=== PATIENT | male | born 1940 | race Caucasian/White ===

== ENCOUNTER 2017-05-05 04:34 | Observation (INO) | payer OTHER ==
[~2017-05-05] VITALS: Ht 170.2 cm; Wt 98.0 kg
[~2017-05-05 04:34] MED LIST: ATENOLOL50 MG PO; CRESTOR40 MG PO; FLONASE16 G1 BOTH NARES; LISINOPRIL40 MG PO; LORATADINE10 M2 PO; PROAIR HFA8.5 GM IH
[2017-05-05 05:41] LABS: HEMATOCRIT 44.2 % (38.0-50.0); MCH 29.4 PG (29.0-34.0); MCHC 33.7 G/DL (30.0-36.0); MCV 87.2 FL (86-99); PLATELET COUNT 223 K/uL (156-360); RBC DIS.WIDTH-CV 13.2 % (11.8-14.6); RED BLOOD COUNT 5.07 M/uL (4.00-5.50); WHITE BLOOD COUNT 7.1 K/uL (4.1-10.2)
[2017-05-05 05:44] LABS: CHLORIDE 107 mEq/L (99-109); SODIUM 138 mEq/L (136-147)
[2017-05-05 05:45] LABS: GLUCOSE 108 mg/dL (70-99)
[2017-05-05 05:47] LABS: ANION GAP 10 MEQ/L (2-14)
[2017-05-05 05:49] LABS: GFR ESTIMATE (CALCULATED) > 59 mL/min/
[2017-05-05 05:50] LABS: UREA NITROGEN (BUN) 19 mg/dL (9-23)
[2017-05-05 05:57] LABS: TROP-I INTERPRETATION NEGATIVE; TROPONIN-I < 0.01 ng/mL (0.0-0.30)
[2017-05-05] MEDS ORDERED: ASPIR-LOW81 MG PO (09:06)
[2017-05-05 11:00] VITALS: BP 165/79
[2017-05-05 13:12] LABS: TROPONIN-I < 0.01 ng/mL (0.0-0.30)
[2017-05-05 13:19] LABS: TROP-I INTERPRETATION NEGATIVE
[2017-05-05 18:13] LABS: TROP-I INTERPRETATION NEGATIVE; TROPONIN-I 0.01 ng/mL (0.0-0.30)
[2017-05-05 19:01] VITALS: BP 123/66
[2017-05-06] VITALS: BP 102/51
[2017-05-06 04:04] VITALS: BP 96/53
[2017-05-06 05:48] LABS: ANION GAP 10 MEQ/L (2-14); CHLORIDE 104 MEQ/L (99-109); GFR ESTIMATE (CALCULATED) > 59 mL/min/; GLUCOSE 107 mg/dL (70-99); POTASSIUM 4.1 MEQ/L (3.7-5.4); SAMPLE HEMOLYSIS CHECK 0; SAMPLE ICTERIC CHECK 0; SAMPLE LIPEMIA CHECK 0; SODIUM 141 MEQ/L (136-147); UREA NITROGEN (BUN) 18 mg/dL (9-23)
[2017-05-06 07:53] VITALS: BP 108/53
[2017-05-06 07:56] VITALS: BP 138/60
[2017-05-06 07:58] VITALS: BP 139/63
[2017-05-06 11:42] VITALS: BP 110/56
[2017-05-06] MEDS ORDERED: LOVASTATIN20 MG PO (12:21)
== END 2017-05-06 17:37 | disposition home or self-care (01) ==
LOC: EME 04:34 → EDOF 08:07 → 5WEST 08:07 → ENRESERV 08:10 → 5WEST 10:37
PROVIDERS: Emergency Medicine; Internal Medicine
DX: R55 Syncope and collapse (principal); I10 Essential (primary) hypertension; Z91.14 Patient's other noncompliance with medication regimen; E78.5 Hyperlipidemia, unspecified; K21.9 Gastro-esophageal reflux disease without esophagitis; M79.89 Other specified soft tissue disorders
CPT/HCPCS: 71020; 80048; 83880; 84484; 85027; 93005; 93306; 93970; 99202; 99281; 99285; G0378; G8978 GP CI; G8979 GP CH; G8987 GO CI; G8988 GO CH; J0360; J1650; J1940; J7040

== ENCOUNTER 2017-05-17 01:07 | Emergency (ER) | payer OTHER ==
[~2017-05-17] VITALS: Ht 175.3 cm; Wt 99.6 kg
[~2017-05-17 01:07] MED LIST changes: +ASPIR-LOW81 MG PO; +LOVASTATIN20 MG PO
[2017-05-17] MEDS ORDERED: CORTISONE57 GM TP (02:20)
[2017-05-17] MEDS ORDERED: BENADRYL25 MG PO (02:20)
[2017-05-17 02:38] VITALS: BP 146/76
== END 2017-05-17 02:38 | disposition home or self-care (01) ==
LOC: EME 01:07
DX: L30.9 Dermatitis, unspecified (principal); E78.5 Hyperlipidemia, unspecified; I10 Essential (primary) hypertension; Z79.82 Long term (current) use of aspirin; Z88.6 Allergy status to analgesic agent
CPT/HCPCS: 99281; 99283

== ENCOUNTER 2017-05-26 15:45 | Emergency (ER) | payer OTHER ==
[~2017-05-26] VITALS: Ht 170.2 cm; Wt 98.9 kg
[~2017-05-26 15:45] MED LIST changes: +BENADRYL25 MG PO; +CORTISONE57 GM TP
[2017-05-26 17:26] LABS: EOSINOPHIL (%) 2.4 % (0-5); EOSINOPHIL COUNT 0.2 K/uL (0-0.3); HEMATOCRIT 45.8 % (38.0-50.0); IMMATURE GRANULOCYTE (%) 1.2 % (0.0-0.7); IMMATURE GRANULOCYTE COUNT 0.1 K/uL; LYMPHOCYTE COUNT 1.2 K/uL (1.0-2.8); MCH 29.2 PG (29.0-34.0); MCHC 33.6 G/DL (30.0-36.0); MCV 86.7 FL (86-99); MEAN PLAT.VOLUME 10.6 uM^3 (9.0-12.4); MONOCYTE (%) 9.2 % (3-12); MONOCYTE COUNT 0.9 K/uL (0-0.8); NEUTROPHIL (%) 74.2 % (45-76); PLATELET COUNT 217 K/uL (156-360); RBC DIS.WIDTH-CV 13.2 % (11.8-14.6); RBC DIS.WIDTH-SD 41.1 % (39-53); RED BLOOD COUNT 5.28 M/uL (4.00-5.50); WHITE BLOOD COUNT 9.5 K/uL (4.1-10.2)
[2017-05-26 17:37] LABS: CHLORIDE 105 mEq/L (99-109); POTASSIUM 4.4 mEq/L (3.7-5.4); SODIUM 140 mEq/L (136-147)
[2017-05-26 17:38] LABS: GLUCOSE 103 mg/dL (70-99)
[2017-05-26 17:40] LABS: ANION GAP 11 MEQ/L (2-14)
[2017-05-26 17:42] LABS: GFR ESTIMATE (CALCULATED) > 59 mL/min/
[2017-05-26 17:43] LABS: UREA NITROGEN (BUN) 23 mg/dL (9-23)
[2017-05-26] MEDS ORDERED: LASIX40 MG PO (17:48)
[2017-05-26 18:44] VITALS: BP 115/76
== END 2017-05-26 18:45 | disposition home or self-care (01) ==
LOC: EME 15:45
PROVIDERS: Emergency Medicine
DX: R60.0 Localized edema (principal); I10 Essential (primary) hypertension; E78.5 Hyperlipidemia, unspecified; J45.909 Unspecified asthma, uncomplicated
CPT/HCPCS: 71010; 80048; 85025; 99281; 99284

== ENCOUNTER 2017-06-08 17:51 | Inpatient (IN) | payer OTHER ==
[~2017-06-08] VITALS: Ht 170.2 cm; Wt 96.2 kg
[~2017-06-08 17:51] MED LIST changes: +LASIX40 MG PO
[2017-06-08 18:54] LABS: MCH 29.3 PG (29.0-34.0); MCHC 33.7 G/DL (30.0-36.0); MCV 86.9 FL (86-99); PLATELET COUNT 246 K/uL (156-360); RBC DIS.WIDTH-CV 13.2 % (11.8-14.6); RBC DIS.WIDTH-SD 42.4 % (39-53); RED BLOOD COUNT 5.64 M/uL (4.00-5.50); WHITE BLOOD COUNT 15.6 K/uL (4.1-10.2)
[2017-06-08 19:07] LABS: CHLORIDE 99 mEq/L (99-109); POTASSIUM 3.7 mEq/L (3.7-5.4); SODIUM 137 mEq/L (136-147)
[2017-06-08 19:09] LABS: GLUCOSE 119 mg/dL (70-99)
[2017-06-08 19:10] LABS: ANION GAP 17 MEQ/L (2-14)
[2017-06-08 19:13] LABS: GFR ESTIMATE (CALCULATED) > 59 mL/min/
[2017-06-08 19:14] LABS: UREA NITROGEN (BUN) 18 mg/dL (9-23)
[2017-06-08 19:17] LABS: TROP-I INTERPRETATION NEGATIVE; TROPONIN-I 0.11 ng/mL (0.0-0.30)
[2017-06-08 21:16] LABS: INTER. NORMALIZED RATIO 1.2; PROTHROMBIN TIME 13.6 SEC (10.2-12.9)
[2017-06-08] MEDS ORDERED: VENTOLIN HFA18 GM IH (23:47)
[2017-06-08] MEDS ORDERED: LOPRESSOR25 MG PO (23:48)
[2017-06-08] MEDS ORDERED: POTASSIUM-9999 MG PO (23:48)
[2017-06-08] MEDS ORDERED: ALTOPREV20 MG PO (23:50)
[2017-06-09 04:35] VITALS: BP 133/71
[2017-06-09 05:25] LABS: HEMATOCRIT 40.2 % (38.0-50.0); MCH 29.7 PG (29.0-34.0); MCHC 34.1 G/DL (30.0-36.0); MCV 87.2 FL (86-99); MEAN PLAT.VOLUME 10.4 uM^3 (9.0-12.4); PLATELET COUNT 207 K/uL (156-360); RBC DIS.WIDTH-CV 13.4 % (11.8-14.6); RBC DIS.WIDTH-SD 42.5 % (39-53); RED BLOOD COUNT 4.61 M/uL (4.00-5.50); WHITE BLOOD COUNT 10.8 K/uL (4.1-10.2)
[2017-06-09 05:39] LABS: ALKALINE PHOSPHATASE 57 IU/L (3-129); ANION GAP 10 MEQ/L (2-14); CHLORIDE 106 MEQ/L (99-109); GFR ESTIMATE (CALCULATED) > 59 mL/min/; GLUCOSE 121 mg/dL (70-99); POTASSIUM 4.1 MEQ/L (3.7-5.4); SAMPLE HEMOLYSIS CHECK 0; SAMPLE ICTERIC CHECK 0; SAMPLE LIPEMIA CHECK 0; SODIUM 140 MEQ/L (136-147); TOTAL BILIRUBIN 1.3 MG/DL (0.0-1.0); UREA NITROGEN (BUN) 13 mg/dL (9-23)
[2017-06-09 07:49] VITALS: BP 137/81
[2017-06-09 11:29] VITALS: BP 124/75
[2017-06-09 15:14] VITALS: BP 119/63
[2017-06-09 20:09] VITALS: BP 133/63
[2017-06-09 23:27] VITALS: BP 119/65
[2017-06-10 02:06] LABS: HEMATOCRIT 36.9 % (38.0-50.0); MCH 29.3 PG (29.0-34.0); MCHC 34.1 G/DL (30.0-36.0); MCV 85.8 FL (86-99); MEAN PLAT.VOLUME 9.9 uM^3 (9.0-12.4); PLATELET COUNT 205 K/uL (156-360); RBC DIS.WIDTH-CV 13.3 % (11.8-14.6); RBC DIS.WIDTH-SD 41.7 % (39-53); WHITE BLOOD COUNT 10.8 K/uL (4.1-10.2)
[2017-06-10 03:06] LABS: CHLORIDE 104 mEq/L (99-109); SODIUM 138 mEq/L (136-147)
[2017-06-10 03:07] LABS: GLUCOSE 112 mg/dL (70-99)
[2017-06-10 03:09] LABS: ANION GAP 11 MEQ/L (2-14)
[2017-06-10 03:11] LABS: GFR ESTIMATE (CALCULATED) > 59 mL/min/
[2017-06-10 03:12] LABS: UREA NITROGEN (BUN) 14 mg/dL (9-23)
[2017-06-10 04:07] VITALS: BP 119/60
[2017-06-10 07:58] VITALS: BP 112/60
[2017-06-10 12:00] VITALS: BP 114/66
[2017-06-10 12:34] LABS: TROP-I INTERPRETATION NEGATIVE; TROPONIN-I 0.03 ng/mL (0.0-0.30)
[2017-06-10 16:06] VITALS: BP 125/60
[2017-06-10 18:47] LABS: TROP-I INTERPRETATION NEGATIVE; TROPONIN-I 0.02 ng/mL (0.0-0.30)
[2017-06-10 20:03] VITALS: BP 136/66
[2017-06-10 23:14] VITALS: BP 118/56
[2017-06-11 01:42] LABS: TROP-I INTERPRETATION NEGATIVE; TROPONIN-I 0.02 ng/mL (0.0-0.30)
[2017-06-11 03:38] VITALS: BP 138/60
[2017-06-11 06:07] LABS: HEMATOCRIT 36.9 % (38.0-50.0); MCH 28.6 PG (29.0-34.0); MCHC 33.1 G/DL (30.0-36.0); MCV 86.6 FL (86-99); MEAN PLAT.VOLUME 10.3 uM^3 (9.0-12.4); PLATELET COUNT 222 K/uL (156-360); RBC DIS.WIDTH-CV 13.3 % (11.8-14.6); RBC DIS.WIDTH-SD 41.7 % (39-53); RED BLOOD COUNT 4.26 M/uL (4.00-5.50); WHITE BLOOD COUNT 10.8 K/uL (4.1-10.2)
[2017-06-11 06:37] LABS: ANION GAP 10 MEQ/L (2-14); CHLORIDE 102 MEQ/L (99-109); GFR ESTIMATE (CALCULATED) > 59 mL/min/; GLUCOSE 115 mg/dL (70-99); POTASSIUM 4.2 MEQ/L (3.7-5.4); SAMPLE HEMOLYSIS CHECK 1; SAMPLE ICTERIC CHECK 0; SAMPLE LIPEMIA CHECK 0; SODIUM 134 MEQ/L (136-147); UREA NITROGEN (BUN) 13 mg/dL (9-23)
[2017-06-11 07:56] VITALS: BP 128/66
[2017-06-11 09:30] VITALS: BP 130/68
[2017-06-11 11:37] VITALS: BP 130/65
[2017-06-11] MEDS ORDERED: SPIRIVA RESPIMAT4 GM IH (12:30)
[2017-06-11] MEDS ORDERED: ELIQUIS5 MG PO (12:31)
== END 2017-06-11 15:55 | DRG 190 ==
LOC: EME 17:51 → 5SOUTH 22:29 → EDOF 22:29 → ENRESERV 22:32 → 5SOUTH 06-09 00:23 → ENRESERV 06-09 17:06 → 4EAST 06-09 20:14 → ENPENDDIS 06-11 15:30 → 4EAST 06-11 15:55
PROVIDERS: Hospitalist; Internal Medicine; Physician Assistant Medical
DX: J44.0 Chronic obstructive pulmonary disease with (acute) lower respiratory infection (principal); I26.99 Other pulmonary embolism without acute cor pulmonale; J20.9 Acute bronchitis, unspecified; I08.1 Rheumatic disorders of both mitral and tricuspid valves; E66.9 Obesity, unspecified; E78.5 Hyperlipidemia, unspecified; I11.0 Hypertensive heart disease with heart failure; I50.32 Chronic diastolic (congestive) heart failure; Z59.0 Homelessness; Z87.891 Personal history of nicotine dependence; K21.9 Gastro-esophageal reflux disease without esophagitis; M19.90 Unspecified osteoarthritis, unspecified site; I27.2 Other secondary pulmonary hypertension; Z68.33 Body mass index [BMI] 33.0-33.9, adult
CPT/HCPCS: 71020; 71275; 80048; 80053; 82272; 83880; 84484; 85027; 85379; 85610; 85730; 93005; 93306; 93970; 94640; 94640 76; 94799; 99202; 99281; 99285; J1940; J7030

== ENCOUNTER 2017-08-25 12:15 | Emergency (ER) | payer OTHER ==
[~2017-08-25] VITALS: Ht 170.2 cm; Wt 95.8 kg
[~2017-08-25 12:15] MED LIST changes: +ALTOPREV20 MG PO; +ELIQUIS5 MG PO; +LOPRESSOR25 MG PO; +POTASSIUM-9999 MG PO; +SPIRIVA RESPIMAT4 GM IH; +VENTOLIN HFA18 GM IH
[2017-08-25 13:57] VITALS: BP 144/82
== END 2017-08-25 13:57 | disposition home or self-care (01) ==
LOC: EME 12:15
DX: T17.928A Food in respiratory tract, part unspecified causing other injury, initial encounter (principal); K21.9 Gastro-esophageal reflux disease without esophagitis; J45.909 Unspecified asthma, uncomplicated; E78.5 Hyperlipidemia, unspecified; I10 Essential (primary) hypertension; Z59.0 Homelessness; Z86.711 Personal history of pulmonary embolism; Z79.01 Long term (current) use of anticoagulants
CPT/HCPCS: 99281; 99284

== ENCOUNTER 2018-01-16 02:57 | Emergency (ER) | payer OTHER ==
[~2018-01-16] VITALS: Ht 172.7 cm; Wt 91.9 kg
[2018-01-16] MEDS ORDERED: [UNRECOGNIZED DRUG - REMARK] (03:32)
[2018-01-16 03:46] VITALS: BP 131/71
== END 2018-01-16 03:46 | disposition home or self-care (01) ==
LOC: EME 02:57
DX: R60.0 Localized edema (principal); I87.8 Other specified disorders of veins; I10 Essential (primary) hypertension; E78.5 Hyperlipidemia, unspecified; K21.9 Gastro-esophageal reflux disease without esophagitis; J45.909 Unspecified asthma, uncomplicated; Z86.711 Personal history of pulmonary embolism; Z88.5 Allergy status to narcotic agent
CPT/HCPCS: 99281; 99284

== ENCOUNTER 2018-02-13 13:54 | Inpatient (IN) | payer OTHER ==
[~2018-02-13] VITALS: Ht 170.2 cm; Wt 93.1 kg
[~2018-02-13 13:54] MED LIST changes: +[UNRECOGNIZED DRUG - REMARK]
[2018-02-13 14:49] LABS: HEMATOCRIT 43.2 % (38.0-50.0); HEMOGLOBIN 14.7 G/DL (12.5-16.6); MCH 29.8 PG (29.0-34.0); MCV 87.6 FL (86-99); PLATELET COUNT 224 K/uL (156-360); RBC DIS.WIDTH-CV 13.2 % (11.8-14.6); RBC DIS.WIDTH-SD 42.5 % (39-53); RED BLOOD COUNT 4.93 M/uL (4.00-5.50)
[2018-02-13 14:59] LABS: INTER. NORMALIZED RATIO 1.2
[2018-02-13 15:00] LABS: ALBUMIN 4.2 g/dL (3.2-4.8); CHLORIDE 104 mEq/L (99-109); POTASSIUM 3.9 mEq/L (3.7-5.4); SODIUM 143 mEq/L (136-147)
[2018-02-13 15:02] LABS: GLUCOSE 123 mg/dL (70-99); PTT 32.7 SEC (25-37)
[2018-02-13 15:03] LABS: TOTAL PROTEIN 6.9 g/dL (6.4-8.3)
[2018-02-13 15:04] LABS: TOTAL BILIRUBIN 1.6 mg/dL (0.0-1.0)
[2018-02-13 15:06] LABS: ALKALINE PHOSPHATASE 76 IU/L (3-129); CREATININE 0.8 mg/dL (0.6-1.3); GFR ESTIMATE (CALCULATED) > 59 mL/min/ (58.99-99999)
[2018-02-13 15:07] LABS: UREA NITROGEN (BUN) 21 mg/dL (9-23)
[2018-02-13 15:08] LABS: AST (GOT) 17 IU/L (2-34)
[2018-02-13 15:09] LABS: ALT (GPT) 14 IU/L (3-49)
[2018-02-13 15:15] LABS: TROP-I INTERPRETATION NEGATIVE; TROPONIN-I 0.01 ng/mL (0.0-0.30)
[2018-02-13 23:56] VITALS: BP 109/54
[2018-02-14 05:51] LABS: HEMATOCRIT 36.9 % (38.0-50.0); HEMOGLOBIN 12.8 G/DL (12.5-16.6); MCH 29.9 PG (29.0-34.0); MCHC 34.7 G/DL (30.0-36.0); MCV 86.2 FL (86-99); PLATELET COUNT 194 K/uL (156-360); RBC DIS.WIDTH-CV 13.3 % (11.8-14.6); RBC DIS.WIDTH-SD 41.5 % (39-53); RED BLOOD COUNT 4.28 M/uL (4.00-5.50); WHITE BLOOD COUNT 8.5 K/uL (4.1-10.2)
[2018-02-14 06:19] LABS: ALBUMIN 3.5 G/DL (3.2-4.8); ALKALINE PHOSPHATASE 57 IU/L (3-129); ALT (GPT) 8 IU/L (3-49); AST (GOT) 12 IU/L (2-34); CHLORIDE 104 MEQ/L (99-109); CREATININE 0.7 MG/DL (0.6-1.3); GFR ESTIMATE (CALCULATED) > 59 mL/min/ (58.99-99999); GLUCOSE 132 mg/dL (70-99); SODIUM 138 MEQ/L (136-147); TOTAL BILIRUBIN 1.1 MG/DL (0.0-1.0); TOTAL PROTEIN 5.8 G/DL (6.4-8.3); UREA NITROGEN (BUN) 15 mg/dL (9-23)
[2018-02-14 07:58] VITALS: BP 129/64
[2018-02-14 12:06] VITALS: BP 132/65
[2018-02-14 16:18] VITALS: BP 120/63
[2018-02-14 19:46] VITALS: BP 129/63
[2018-02-14 23:32] VITALS: BP 115/62
[2018-02-15 05:41] VITALS: BP 118/59
[2018-02-15 06:13] LABS: HEMATOCRIT 37.8 % (38.0-50.0); HEMOGLOBIN 12.6 G/DL (12.5-16.6); MCH 28.8 PG (29.0-34.0); MCHC 33.3 G/DL (30.0-36.0); MCV 86.3 FL (86-99); PLATELET COUNT 212 K/uL (156-360); RED BLOOD COUNT 4.38 M/uL (4.00-5.50); WHITE BLOOD COUNT 10.4 K/uL (4.1-10.2)
[2018-02-15 06:31] LABS: CHLORIDE 102 MEQ/L (99-109); CREATININE 0.8 MG/DL (0.6-1.3); GFR ESTIMATE (CALCULATED) > 59 mL/min/ (58.99-99999); GLUCOSE 114 mg/dL (70-99); SODIUM 138 MEQ/L (136-147); UREA NITROGEN (BUN) 20 mg/dL (9-23)
[2018-02-15 06:56] VITALS: BP 114/68
[2018-02-15 10:56] VITALS: BP 113/58
[2018-02-15 15:00] VITALS: BP 101/52
[2018-02-15 20:52] VITALS: BP 114/53
[2018-02-16 00:37] VITALS: BP 117/62
[2018-02-16 04:53] VITALS: BP 113/56
[2018-02-16 07:36] VITALS: BP 148/67
[2018-02-16 11:05] VITALS: BP 122/68
[2018-02-16 15:25] VITALS: BP 137/64
[2018-02-16] MEDS ORDERED: SPIRIVA RESPIMAT4 GM IH (15:48)
[2018-02-16] MEDS ORDERED: ELIQUIS5 MG PO ×2 (15:58→15:59)
[2018-02-16] MEDS ORDERED: BENZONATATE100 MG PO (15:59)
[2018-02-16] MEDS ORDERED: FAMOTIDINE20 MG PO (16:00)
[2018-02-16 17:56] VITALS: BP 120/64
== END 2018-02-16 18:08 | DRG 299 ==
LOC: EME 13:54 → EDOF 18:45 → 5EAST 18:45 → ENRESERV 18:54 → 5EAST 19:46
PROVIDERS: Emergency Medicine Emergency Medical Services; Internal Medicine; Student in an Organized Health Care Education/Training Program
DX: I82.412 Acute embolism and thrombosis of left femoral vein (principal); I26.99 Other pulmonary embolism without acute cor pulmonale; I11.0 Hypertensive heart disease with heart failure; I50.32 Chronic diastolic (congestive) heart failure; J44.1 Chronic obstructive pulmonary disease with (acute) exacerbation; I27.20 Pulmonary hypertension, unspecified; E78.5 Hyperlipidemia, unspecified; R79.1 Abnormal coagulation profile; K21.9 Gastro-esophageal reflux disease without esophagitis; M79.642 Pain in left hand; Z86.711 Personal history of pulmonary embolism; Z86.718 Personal history of other venous thrombosis and embolism; Z59.0 Homelessness; Z87.891 Personal history of nicotine dependence; Z88.5 Allergy status to narcotic agent
CPT/HCPCS: 71045; 71275; 80048; 80053; 83735; 83880; 84153; 84484; 85027; 85379; 85610; 85730; 93005; 93306; 93971; 94640; 94640 76; 94760; 99202; 99281; 99285; J7040; J7512

== ENCOUNTER 2018-04-28 09:33 | Emergency (ER) | payer OTHER ==
[~2018-04-28] VITALS: Ht 170.2 cm; Wt 99.0 kg
[~2018-04-28 09:33] MED LIST changes: +BENZONATATE100 MG PO; +FAMOTIDINE20 MG PO
[2018-04-28 10:11] LABS: BASOPHIL (%) 0.4 % (0-1); EOSINOPHIL (%) 1.8 % (0-5); EOSINOPHIL COUNT 0.2 K/uL (0-0.3); HEMATOCRIT 42.3 % (38.0-50.0); HEMOGLOBIN 14.5 G/DL (12.5-16.6); IMMATURE GRANULOCYTE (%) 1.8 % (0.0-0.7); LYMPHOCYTE (%) 14.6 % (15-42); LYMPHOCYTE COUNT 1.3 K/uL (1.0-2.8); MCH 29.2 PG (29.0-34.0); MCHC 34.3 G/DL (30.0-36.0); MCV 85.1 FL (86-99); MONOCYTE (%) 8.8 % (3-12); MONOCYTE COUNT 0.8 K/uL (0-0.8); NEUTROPHIL (%) 72.6 % (45-76); NEUTROPHIL COUNT 6.5 K/uL (1.8-6.4); PLATELET COUNT 228 K/uL (156-360); RBC DIS.WIDTH-CV 13.3 % (11.8-14.6); RBC DIS.WIDTH-SD 41.2 % (39-53); RED BLOOD COUNT 4.97 M/uL (4.00-5.50); WHITE BLOOD COUNT 8.9 K/uL (4.1-10.2)
[2018-04-28 10:17] LABS: INTER. NORMALIZED RATIO 1.1
[2018-04-28 10:20] LABS: CHLORIDE 106 mEq/L (99-109); SODIUM 142 mEq/L (136-147)
[2018-04-28 10:22] LABS: GLUCOSE 113 mg/dL (70-99)
[2018-04-28 10:26] LABS: CREATININE 0.8 mg/dL (0.6-1.3); GFR ESTIMATE (CALCULATED) > 59 mL/min/ (58.99-99999)
[2018-04-28 10:27] LABS: UREA NITROGEN (BUN) 18 mg/dL (9-23)
[2018-04-28 14:49] VITALS: BP 170/77
== END 2018-04-28 14:50 ==
LOC: EME 09:33
PROVIDERS: Emergency Medicine
DX: T18.120A Food in esophagus causing compression of trachea, initial encounter (principal); X58.XXXA Exposure to other specified factors, initial encounter; M79.89 Other specified soft tissue disorders; R60.0 Localized edema; R11.10 Vomiting, unspecified; Z86.711 Personal history of pulmonary embolism; Z79.01 Long term (current) use of anticoagulants; J44.9 Chronic obstructive pulmonary disease, unspecified; I10 Essential (primary) hypertension; Z87.891 Personal history of nicotine dependence
CPT/HCPCS: 71045; 80048; 85025; 85610; 93970; 99281; 99285; J2405

== ENCOUNTER 2018-05-22 23:33 | Emergency (ER) | payer OTHER ==
[~2018-05-22] VITALS: Ht 175.3 cm; Wt 113.6 kg
[2018-05-23 00:27] LABS: BASOPHIL (%) 0.7 % (0-1); BASOPHIL COUNT 0.1 K/uL (0-0.1); EOSINOPHIL (%) 3.6 % (0-5); EOSINOPHIL COUNT 0.3 K/uL (0-0.3); HEMATOCRIT 40.8 % (38.0-50.0); IMMATURE GRANULOCYTE (%) 1.2 % (0.0-0.7); LYMPHOCYTE (%) 22.8 % (15-42); LYMPHOCYTE COUNT 1.8 K/uL (1.0-2.8); MCH 29.1 PG (29.0-34.0); MCHC 34.3 G/DL (30.0-36.0); MCV 84.8 FL (86-99); MONOCYTE COUNT 0.7 K/uL (0-0.8); NEUTROPHIL (%) 62.7 % (45-76); NEUTROPHIL COUNT 4.8 K/uL (1.8-6.4); PLATELET COUNT 253 K/uL (156-360); RBC DIS.WIDTH-CV 13.3 % (11.8-14.6); RBC DIS.WIDTH-SD 41.3 % (39-53); RED BLOOD COUNT 4.81 M/uL (4.00-5.50); WHITE BLOOD COUNT 7.7 K/uL (4.1-10.2)
[2018-05-23 00:33] LABS: INTER. NORMALIZED RATIO 1.4
[2018-05-23 00:36] LABS: PTT 38.1 SEC (25-37)
[2018-05-23 00:39] LABS: CHLORIDE 105 mEq/L (99-109); POTASSIUM 3.8 mEq/L (3.7-5.4); SODIUM 141 mEq/L (136-147)
[2018-05-23 00:40] LABS: GLUCOSE 120 mg/dL (70-99)
[2018-05-23 00:44] LABS: CREATININE 0.8 mg/dL (0.6-1.3); GFR ESTIMATE (CALCULATED) > 59 mL/min/ (58.99-99999)
[2018-05-23 00:45] LABS: UREA NITROGEN (BUN) 16 mg/dL (9-23)
[2018-05-23 00:52] LABS: TROP-I INTERPRETATION NEGATIVE; TROPONIN-I < 0.01 ng/mL (0.0-0.30)
[2018-05-23 02:04] LABS: APPEARANCE CLEAR ((CLEAR)); BILIRUBIN NEGATIVE; BLOOD SMALL; COLOR STRAW ((YELLOW)); GLUCOSE (STRIP) NEGATIVE; KETONES NEGATIVE; LEUKOCYTES NEGATIVE; NITRITE NEGATIVE; PROTEIN (STRIP) NEGATIVE; SPECIFIC GRAVITY 1.011 (1.000-1.030); UROBILINOGEN 0.2 MG/DL (0.2-1.0)
[2018-05-23 02:10] LABS: BACTERIA NONE SEEN /HPF; EPITHELIAL CELLS NONE SEEN /HPF; MUCUS NONE SEEN /LPF; UCUL ADDED? NO; WHITE BLOOD CELLS 0-5 /HPF (0-5)
[2018-05-23 02:25] VITALS: BP 154/77
== END 2018-05-23 02:26 | disposition home or self-care (01) ==
LOC: EME 23:33
PROVIDERS: Emergency Medicine
DX: R42 Dizziness and giddiness (principal); I44.0 Atrioventricular block, first degree; J44.9 Chronic obstructive pulmonary disease, unspecified; I10 Essential (primary) hypertension; K21.9 Gastro-esophageal reflux disease without esophagitis; E78.5 Hyperlipidemia, unspecified; Z87.891 Personal history of nicotine dependence; Z88.5 Allergy status to narcotic agent
CPT/HCPCS: 70450; 71045; 80048; 81003; 84484; 85025; 85610; 85730; 93005; 99281; 99285; J7030

== ENCOUNTER 2018-05-26 02:40 | Emergency (ER) | payer OTHER ==
[~2018-05-26] VITALS: Ht 175.3 cm; Wt 98.9 kg
[2018-05-26 03:42] LABS: BASOPHIL (%) 0.5 % (0-1); BASOPHIL COUNT 0.1 K/uL (0-0.1); EOSINOPHIL (%) 2.5 % (0-5); EOSINOPHIL COUNT 0.3 K/uL (0-0.3); HEMATOCRIT 41.8 % (38.0-50.0); HEMOGLOBIN 14.6 G/DL (12.5-16.6); IMMATURE GRANULOCYTE (%) 1.6 % (0.0-0.7); LYMPHOCYTE (%) 17.2 % (15-42); LYMPHOCYTE COUNT 1.7 K/uL (1.0-2.8); MCH 29.4 PG (29.0-34.0); MCHC 34.9 G/DL (30.0-36.0); MCV 84.1 FL (86-99); MONOCYTE (%) 10.7 % (3-12); MONOCYTE COUNT 1.1 K/uL (0-0.8); NEUTROPHIL (%) 67.5 % (45-76); NEUTROPHIL COUNT 6.8 K/uL (1.8-6.4); PLATELET COUNT 263 K/uL (156-360); RBC DIS.WIDTH-CV 13.7 % (11.8-14.6); RED BLOOD COUNT 4.97 M/uL (4.00-5.50)
[2018-05-26 03:51] LABS: ALBUMIN 3.8 g/dL (3.2-4.8); CHLORIDE 106 mEq/L (99-109); POTASSIUM 3.4 mEq/L (3.7-5.4); SODIUM 142 mEq/L (136-147)
[2018-05-26 03:53] LABS: GLUCOSE 133 mg/dL (70-99)
[2018-05-26 03:54] LABS: TOTAL PROTEIN 6.4 g/dL (6.4-8.3)
[2018-05-26 03:55] LABS: TOTAL BILIRUBIN 0.5 mg/dL (0.0-1.0)
[2018-05-26 03:57] LABS: ALKALINE PHOSPHATASE 82 IU/L (3-129); CREATININE 0.8 mg/dL (0.6-1.3); GFR ESTIMATE (CALCULATED) > 59 mL/min/ (58.99-99999)
[2018-05-26 03:58] LABS: UREA NITROGEN (BUN) 21 mg/dL (9-23)
[2018-05-26 03:59] LABS: AST (GOT) 13 IU/L (2-34)
[2018-05-26 04:00] LABS: ALT (GPT) 14 IU/L (3-49)
[2018-05-26 04:06] LABS: TROP-I INTERPRETATION NEGATIVE; TROPONIN-I < 0.01 ng/mL (0.0-0.30)
[2018-05-26] MEDS ORDERED: ELIQUIS5 MG PO (05:37)
[2018-05-26] MEDS ORDERED: LASIX40 MG PO (05:37)
[2018-05-26] MEDS ORDERED: METOPROLOL TART25 MG PO (05:37)
[2018-05-26 05:51] VITALS: BP 160/93
== END 2018-05-26 06:14 | disposition home or self-care (01) ==
LOC: EME 02:40
PROVIDERS: Emergency Medicine
DX: I48.91 Unspecified atrial fibrillation (principal); I10 Essential (primary) hypertension; Z76.0 Encounter for issue of repeat prescription; J44.9 Chronic obstructive pulmonary disease, unspecified; K21.9 Gastro-esophageal reflux disease without esophagitis; E78.5 Hyperlipidemia, unspecified; Z88.5 Allergy status to narcotic agent; Z87.891 Personal history of nicotine dependence
CPT/HCPCS: 71045; 80053; 84484; 85025; 93005; 99281; 99283